=== PATIENT | male | born 2000 | race Caucasian/White ===

== ENCOUNTER 2020-11-20 04:53 | Emergency (ER) | payer BC ==
[~2020-11-20] VITALS: Ht 180.3 cm; Wt 82.0 kg
[2020-11-20] MEDS ORDERED: ONDANSETRON ODT 4 MG TAB.RAPDIS. PO ONE (05:30)
--- NOTE | 2020-11-20 05:30 | PHYS DOC ---
Past Medical History Past Medical History: Seizure (ZOHREH MCGEE DO) General Adult EDM: Chief Complaint: SEIZURE HPI: HPI: Patient is a 19-year-old male presenting via POV for seizure. Patient has known history of this, is covered in outpatient setting by [facility] neurology team. Reports he takes Keppra, this is his only medication that he takes on a daily basis and states he has been compliant most days with this, does admit he did miss yesterday evening's dose. Reports he woke up at approximately 0330 and was getting ready for work, a thud was heard next-door by brother who found patient having a generalized tonic-clonic seizure that responded without any intervention. Patient has no recollection of this. There was no loss of bladder or bowel incontinence but patient does admit he bit his tongue. Patient was evaluated by mother, she states patient typically has a brief postictal spe ll but is back at his baseline with last seizure suffered September 2019. States patient had a prolonged postictal spell that did not resolve despite monitoring patient for an hour after episode which concerned her prompting her to bring patient to our ER for evaluation. On arrival, patient reports he feels "60%" and still not quite at baseline. Feels fatigued and has left chest wall and back pain where he fell. Denies fever, vision changes, chest pain, neck stiffness or rigidity, shortness of breath, abdominal pain, bladder or bowel incontinence, motor or sensory function changes, no neurologic deficits reported. Denies any significant changes in sleep routine, medications, stressors, concerning p.o. ingestions etc. (ZOHREH MCGEE DO) Review of Systems: Review of Systems: Fourteen body systems of review of systems have been reviewed. See HPI for pertinent positives and negative responses, other arizmendi all other systems are negative, non-pertinent or non-contributory (ZOHREH MCGEE DO) Heart Score: C/O Chest Pain: No HEART Score for Chest Pain: HEART Score for Chest Pain Response (Comments) Value History Slighlty/Non-Suspicious 0 ECG Normal 0 Age < 45 0 Risk Factors No Risk Factors 0 Total 0 Risk Factors: Risk Factors: DM, Current or recent (<one month) smoker, HTN, HLP, family history of CAD, obesity. Risk Scores: Score 0 - 3: 2.5% MACE over next 6 weeks - Discharge Home Score 4 - 6: 20.3% MACE over next 6 weeks - Admit for Clinical Observation Score 7 - 10: 72.7% MACE over next 6 weeks - Early Invasive Strategies (ZOHREH MCGEE DO) C/O Chest Pain: N/A (YU LANTIGUA DO) Physical Exam: PE: Constitutional: Pt is oriented to person, place, and time. Pt appears well-developed but fatigued HEENT: Head: Normocephalic and atraumatic. External ears unremarkable, negative mckeon sign Conjunctivae and EOM are normal. Pupils are equal, round, and reactive to light. Oropharynx is clear and moist. No hematomas or lacerations to face or scalp. Patient does have mild abrasion noted to left superior and lateral portion of left eyebrow OP clear, no blood, no malocclusion, dentition intact, there is appreciable bite collins to tongue that are new and suffered during seizure Nares clear, no nasal septal hematoma Midface stable Neck: C-spine midline nontender, no step-offs Cardiovascular: Normal rate, regular rhythm and normal heart sounds. Pulmonary/Chest: Effort normal and breath sounds normal. No respiratory distress. No wheezes. CTA bilaterally. Patient does have noticeable ecchymosis present to left posterior chest wall Abdominal: Soft. Bowel sounds are normal. Pt exhibits no distension. There is no tenderness. Musculoskeletal: No bony tenderness to extremities, no deformities, full ROM extremities Chest wall stable Pelvis stable and non-tender No vertebral TTP and spine without stepoffs Neurological: Pt is alert and oriented to person, place, and time. Moving all extremities willfully, able to wiggle all fingers and toes Alert and oriented x 3 Motor and sensory function intact Cranial nerves II to XII intact Skin: Skin is warm and dry. No lacerations Psychiatric: Behavior is appropriate for situation (ZOHREH MCGEE DO) Current Patient Data: Labs: Laboratory Tests Test 11/20/20 05:23 Glucose (Fingerstick) 100 mg/dL (70-99) H Vital Signs: Vital Signs Date Time Temp Pulse Resp B/P (MAP) Pulse Ox O2 Delivery O2 Flow Rate FiO2 11/20/20 05:10 97.8 84 20 133/72 (92) 98 Room Air 97.8 Vital Signs Date Time Temp Pulse Resp B/P (MAP) Pulse Ox O2 Delivery O2 Flow Rate FiO2 11/20/20 05:10 97.8 84 20 133/72 (92) 98 Room Air 97.8 (ZOHREH MCGEE DO) EKG: EKG: EKG ordered and interpreted by myself at 0519 hrs. as sinus rhythm at 76 bpm, unremarkable intervals, no axis deviation, T wave inversion noted in lead III without prior EKG to compare to, no other obvious ischemic findings, no STEMI (ZOHREH MCGEE DO) Radiology/Procedures: Radiology/Procedures: [] (ZOHREH MCGEE DO) Radiology/Procedures: CT scan of the head and x-ray of the chest did not show any acute problem. (YU LANTIGUA DO) Course & Med Decision Making: Course & Med Decision Making Vital signs stable, HPI and physical exam obtained without any emergent or surgical findings Despite history of seizures, there is obvious change in baseline seizure/post ictal state which is concerning and warrants further diagnostic work-up which was ordered At this time of care, my shift is ended. Comprehensive signout given to oncoming physician. Please defer to Dr. Lantigua's documentation regarding future care of patient while in our ER setting (ZOHREH MCGEE DO) Course & Med Decision Making Patient felt much better in the ER, he had no seizure. Patient was given loading dose of Keppra in ER here. Patient will go home. Patient will be discharged home with his family patient will need to follow-up with his neurologist at today or tomorrow. Patient is amenable to plan of care (YU LANTIGUA DO) Dragon Disclaimer: Dragon Disclaimer: This electronic medical record was generated, in whole or in part, using a voice recognition dictation system. (ZOHREH MCGEE DO) Departure Departure Impression: Primary Impression: Seizure Additional Impression: Chest wall contusion Disposition: HOME / SELF CARE / HOMELESS Condition: IMPROVED Patient Instructions: Chest Contusion, Seizure, Adult Additional Instructions: Please follow-up with your neurologist at this week for further evaluation and treatment Thank you for visiting our Emergency Department. We appreciate you trusting us with your care. If any additional problems come up don't hesitate to return to visit us. Please follow up with your primary care provider so they can plan leanna tional care if needed and know about the problem that you had. If symptoms worsen come back to the Emergency Department. Any concerning symptoms that start such as chest pain, shortness of air, weakness or numbness on one side of the body, running high fevers or any other concerning symptoms return to the ER. ZOHREH MCGEE DO November 20, 2020 05:30 YU LANTIGUA DO November 20, 2020 06:24
[2020-11-20] MEDS ORDERED: ONDANSETRON PF 4 MG/2 ML VIAL. ONE (05:56)
[2020-11-20] MEDS ORDERED: ACETAMINOPHEN 500 MG TABLET PO ONE (06:00)
[2020-11-20 06:04] LABS: BASO % 0 % (0-3); EOS # 0.1 x10^3/uL (0.0-0.7); EOS % 1 % (0-3); HEMATOCRIT 46.1 % (39.0-53.0); HEMOGLOBIN 16.1 g/dL (13.0-17.5); LYMPH % 10 % (24-48); MEAN CORPUSCULAR HEMOGLOBIN 30 pg (25-35); MEAN CORPUSCULAR HGB CONC 35 g/dL (31-37); MEAN CORPUSCULAR VOLUME 87 fL (79-100); MONO % 10 % (0-9); NEUT # 8.2 x10^3/uL (1.8-7.7); NEUT % 80 % (31-73); PLATELET COUNT 183 x10^3/uL (140-400); RED BLOOD COUNT 5.32 x10^6/uL (4.30-5.70); RED CELL DISTRIBUTION WIDTH 12.1 % (11.5-14.5); WHITE BLOOD COUNT 10.3 x10^3/uL (4.0-11.0)
--- NOTE | 2020-11-20 06:13 | RAD ---
EXAM: CHEST ONE VIEW. HISTORY: Seizure, fall. COMPARISON: None. FINDINGS: A frontal view of the chest is obtained. There are no confluent infiltrates. There is no pneumothorax or pleural effusion. The heart is not en larged. IMPRESSION: 1. No confluent infiltrates. Electronically signed by: Risa Cutler MD (11/20/2020 6:11 AM) [facility]
--- NOTE | 2020-11-20 06:14 | RAD ---
EXAM: CT HEAD WITHOUT CONTRAST. HISTORY: Seizure, postictal state. TECHNIQUE: Computed tomography of the head was performed without intravenous contrast. One or more of the following individualized dose reduction techniques were utilized for this examination: 1. Automated exposure control. 2. Adjustment of the mA and/or kV according to patient size. 3. Use of iterative reconstruction technique. COMPARISON: None. FINDINGS: There is no intracranial hemorrhage. Mejia-white differentiation is preserved. The ventricle s are normal in size and position. The visualized paranasal sinuses appear clear. The orbits are unremarkable. The temporal bones are un remarkable. The calvarium reveals no suspicious lesions. IMPRESSION: 1. No acute intracranial findings. Electronically signed by: Risa Cutler MD (11/20/2020 6:12 AM) [facility]
[2020-11-20] MEDS ORDERED: ONDANSETRON PF 4 MG/2 ML VIAL. IVP ONE (06:30)
[2020-11-20 06:35] LABS: CALCIUM 9.4 mg/dL (8.5-10.1); CREATININE 1.3 mg/dL (0.7-1.3); GFR 70.4; POTASSIUM 3.9 mmol/L (3.5-5.1)
[2020-11-20 06:40] LABS: ALBUMIN 4.7 g/dL (3.4-5.0); ALBUMIN/GLOBULIN RATIO 1.7 (1.0-1.7); TOTAL BILIRUBIN 0.6 mg/dL (0.2-1.0); TOTAL PROTEIN 7.5 g/dL (6.4-8.2)
[2020-11-20] MEDS ORDERED: levETIRAcetam 1,000 MG in IV DEXTROSE 5% 100ML 100 ML IV ONE (07:00)
[2020-11-20 07:42] VITALS: BP 118/64
--- NOTE | 2020-11-21 07:57 | EKG ---
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
== END 2020-11-20 08:40 | disposition home or self-care (01) ==
LOC: ER 04:53
DX: S20.212A Contusion of left front wall of thorax, initial encounter (principal); R56.9 Unspecified convulsions; W18.39XA Other fall on same level, initial encounter; Y93.89 Activity, other specified; Y92.89 Other specified places as the place of occurrence of the external cause; Y99.8 Other external cause status
CPT/HCPCS: 70450; 71045; 80053; 80177; 82550; 82962; 83735; 84484; 85025; 93005; 96365; 96375; 99285; J1953; J2405; J7060; 36415